=== PATIENT | male | born 1930 | race African-American/Black ===

== ENCOUNTER 2017-05-04 23:00 | Inpatient (IN) | payer MEDICARE, OTHER ==
[~2017-05-04] VITALS: Ht 152.4 cm; Wt 86.2 kg
[2017-05-04] MEDS ORDERED: LEVOFLOXACIN 750MG PREMIX 150 ML IV ONE (23:30)
[2017-05-04 23:47] LABS: BASOPHILS % 0.6 % (0.0-2.0); EOSINOPHILS % 4.1 % (0.0-5.0); HEMATOCRIT. 34.7 % (42.0-52.0); HEMOGLOBIN. 11.1 g/dL (14.0-18.0); LYMPHOCYTES % 16.8 % (20.0-50.0); MEAN CORPUSCULAR HEMOGLOBIN 27.6 pg (28.0-32.0); MEAN CORPUSCULAR VOLUME 86.3 fL (80.0-94.0); MEAN PLATELET VOLUME 9.1 fl (7.4-10.4); MONOCYTES % 9.2 % (2.0-8.0); NEUTROPHILS % 69.3 % (40.0-76.0); PLATELET 197 x1000/uL (130-400); RED BLOOD CELL COUNT 4.02 mill/uL (4.7-6.1); RED CELL DISTRIBUTION WIDTH 19.1 % (11.6-14.6)
[2017-05-04 23:53] LABS: INR 1.1; PROTHROMBIN TIME 11.7 sec (9.4-11.6)
[2017-05-05] VITALS (11 sets, daily range): BP systolic 149–172; BP diastolic 71–99
[2017-05-05 00:01] LABS: CARBON DIOXIDE 26 mEq/L (21-32); CHLORIDE 101 mEq/L (98-107); TROPONIN I 0.22 ng/mL (0.00-0.04)
[2017-05-05] MEDS ORDERED: ASPIRIN 81MG TABLET PO SCH (00:30)
[2017-05-05] MEDS ORDERED: NITROGLYCERIN 0.4MG TABLET SL SL ONE (03:30)
[2017-05-05] MEDS ORDERED: ACETAMINOPHEN 325MG TABLET PO PRN (10:15)
[2017-05-05] MEDS ORDERED: ONDANSETRON HCL 4MG/2ML VIAL IV PRN (10:15)
[2017-05-05] MEDS ORDERED: DOCUSATE SODIUM 100MG CAPSULE PO PRN (10:15)
[2017-05-05] MEDS ORDERED: MAGNESIUM/ALUMINUM HYDROXIDE/SIMETHICONE 30ML UDC PO PRN (10:15)
[2017-05-05] MEDS ORDERED: HYDROCODONE/ACETAMINOPHEN 5/325MG TABLET PO PRN (10:15)
[2017-05-05] MEDS ORDERED: IPRATROPIUM/ALBUTEROL 0.5-3(2.5)MG/3ML NEB INH PRN (10:15)
[2017-05-05 10:40] LABS: BG BASE EXCESS 0.1 mmol/L (-2.0-2.0); BG CARBOXYHEMOGLOBIN 0.7 % (0.5-1.5); BG DEOXYHEMOGLOBIN 7.9 % (0.0-5.0); BG FRACTION INSPIRED OXYGEN 32; BG METHEMOGLOBIN 0.1 % (0.0-1.5); BG OXYHEMOGLOBIN 91.3 % (94.0-97.0); BG PCO2 36.1 mmHg (35.0-45.0); BG PO2 63.5 mmHg (75.0-100.0); BG SAMPLE SITE RIGHT BRACHIAL; BG TOTAL HEMOGLOBIN 11.7 g/dL (12.0-18.0); BG VENT MODE NASAL CANNULA
[2017-05-05] MEDS: AZITHROMYCIN 500 MG TABLET PO SCH (12:35)
[2017-05-05 15:43] LABS: CREATINE KINASE MB FRACTION 2.6 ng/mL (0.5-3.6)
[2017-05-05 15:48] LABS: TROPONIN I 0.79 ng/mL (0.00-0.04)
[2017-05-05] MEDS: CEFTRIAXONE 1 G PREMIX 50 ML IV SCH (17:06)
[2017-05-05] MEDS ORDERED: DEXTROSE 50% WATER 50ML SYRINGE IV PRN (19:15)
[2017-05-05] MEDS: INSULIN LISPRO 100 UNITS/ML SUBCUT SCH (21:00)
[2017-05-05] MEDS: BLOOD SUGAR DIAGNOSTIC STRIP TEST SCH (21:00)
[2017-05-05] MEDS: HEPARIN 5000 UNITS/ML VIAL SUBCUT SCH (21:52)
[2017-05-06] VITALS (13 sets, daily range): BP systolic 93–171; BP diastolic 25–94
[2017-05-06 00:10] LABS: CREATINE KINASE MB FRACTION 2.4 ng/mL (0.5-3.6)
[2017-05-06] MEDS: CLONIDINE 0.1MG TABLET PO PRN ×2 (00:23→06:34)
[2017-05-06 00:51] LABS: TROPONIN I 0.7 ng/mL (0.00-0.04)
[2017-05-06] MEDS: BLOOD SUGAR DIAGNOSTIC STRIP TEST SCH ×4 (06:50→16:50)
[2017-05-06] MEDS: INSULIN LISPRO 100 UNITS/ML SUBCUT SCH ×4 (07:20→18:11)
[2017-05-06] MEDS ORDERED: ASPIRIN 81MG EC TABLET PO SCH (09:00)
[2017-05-06] MEDS: AZITHROMYCIN 500 MG TABLET PO SCH (09:23)
[2017-05-06] MEDS: CEFTRIAXONE 1 G PREMIX 50 ML IV SCH (09:23)
[2017-05-06] MEDS: HEPARIN 5000 UNITS/ML VIAL SUBCUT SCH (09:25)
[2017-05-06 09:50] LABS: HEMATOCRIT 34.5 % (42.0-52.0); HEMOGLOBIN 10.9 g/dL (14.0-18.0); MEAN CORPUSCULAR HEMOGLOBIN 27.5 pg (28.0-32.0); PLATELET 196 x1000/uL (130-400); RED BLOOD CELL COUNT 3.97 mill/uL (4.7-6.1); RED CELL DISTRIBUTION WIDTH 19.3 % (11.6-14.6)
[2017-05-06] MEDS ORDERED: LISINOPRIL 2.5MG TABLET PO SCH (11:45)
[2017-05-06] MEDS ORDERED: CARVEDILOL 3.125 MG TABLET PO SCH (21:00)
== END 2017-05-06 21:02 | disposition short-term general hospital (02) | DRG 291 ==
LOC: ER 23:00 → EDBEDREQTM 05-05 00:10 → EDBEDREQSVC 05-05 00:10 → EDBEDREQ 05-05 00:10 → 3WST 05-05 05:59 → EDBEDREQTM 05-05 06:01 → EDBEDREQ 05-05 06:01 → ENRESERV 05-05 06:08
PROVIDERS: ADMIT Internal Medicine; ATTEND Internal Medicine
PROC: 5A09357 Assistance with Respiratory Ventilation, Less than 24 Consecutive Hours, Continuous Positive Airway Pressure (ICD-10-PCS; principal; 2017-05-05)
DX: I13.2 Hypertensive heart and chronic kidney disease with heart failure and with stage 5 chronic kidney disease, or end stage renal disease (principal); J96.01 Acute respiratory failure with hypoxia; I50.23 Acute on chronic systolic (congestive) heart failure; N18.6 End stage renal disease; I42.9 Cardiomyopathy, unspecified; E11.22 Type 2 diabetes mellitus with diabetic chronic kidney disease; E11.51 Type 2 diabetes mellitus with diabetic peripheral angiopathy without gangrene; Z89.511 Acquired absence of right leg below knee; Z89.512 Acquired absence of left leg below knee; Z99.2 Dependence on renal dialysis
CPT/HCPCS: 36415; 36600; 71010; 80048; 80053; 80061; 82375; 82550; 82553; 82805; 82962; 83605; 83735; 83880; 84443; 84484; 85025; 85027; 85610; 87040; 93005; 93306; 93970; 94660; 96365; 96366; 99291; J0696; J1644; J1815; J1956; J7030; J7050

== ENCOUNTER 2017-05-11 12:11 | Inpatient (IN) | payer OTHER ==
[~2017-05-11] VITALS: Ht 167.6 cm; Wt 79.8 kg
[2017-05-11] MEDS ORDERED: SODIUM CHLORIDE 0.9% 1,000 ML IV ONE (13:44)
[2017-05-11 14:28] LABS: HEMATOCRIT. 35.8 % (42.0-52.0); HEMOGLOBIN. 11.4 g/dL (14.0-18.0); MEAN CORPUSCULAR HEMOGLOBIN 27.1 pg (28.0-32.0); MEAN CORPUSCULAR VOLUME 85.1 fL (80.0-94.0); MEAN PLATELET VOLUME 9.5 fl (7.4-10.4); PLATELET 253 x1000/uL (130-400); RED CELL DISTRIBUTION WIDTH 19.4 % (11.6-14.6)
[2017-05-11 14:35] LABS: INR 1.1; PARTIAL THROMBOPLASTIN TIME 28.1 sec (23.4-31.0); PROTHROMBIN TIME 11.7 sec (9.4-11.6)
[2017-05-11 14:47] LABS: CARBON DIOXIDE 24 mEq/L (21-32); CHLORIDE 96 mEq/L (98-107)
[2017-05-11] MEDS ORDERED: ASPIRIN 325MG EC TABLET PO ONE (15:15)
[2017-05-11 15:19] LABS: PLATELET ESTIMATE NORMAL
[2017-05-11] MEDS ORDERED: DOCUSATE SODIUM 100MG CAPSULE PO PRN (17:00)
[2017-05-11] MEDS ORDERED: MAGNESIUM/ALUMINUM HYDROXIDE/SIMETHICONE 30ML UDC PO PRN (17:00)
[2017-05-11] MEDS ORDERED: IPRATROPIUM/ALBUTEROL 0.5-3(2.5)MG/3ML NEB INH PRN (17:00)
[2017-05-11] MEDS ORDERED: CLONIDINE 0.1MG TABLET PO PRN (17:00)
[2017-05-11] MEDS ORDERED: ONDANSETRON HCL 4MG/2ML VIAL IV PRN (17:00)
[2017-05-11] MEDS ORDERED: ACETAMINOPHEN 325MG TABLET PO PRN (17:00)
[2017-05-11] MEDS ORDERED: HYDROCODONE/ACETAMINOPHEN 5/325MG TABLET PO PRN (17:00)
[2017-05-11 22:00] VITALS: BP 161/68
[2017-05-12] VITALS: BP 161/68
[2017-05-12 00:49] LABS: CREATINE KINASE MB FRACTION 2.3 ng/mL (0.5-3.6)
[2017-05-12 01:04] LABS: TROPONIN I 5.1 ng/mL (0.00-0.04)
[2017-05-12 04:00] VITALS: BP 131/68
[2017-05-12] MEDS ORDERED: CARV12.545 PO (04:01)
[2017-05-12] MEDS ORDERED: CALC667C PO (04:01)
[2017-05-12] MEDS ORDERED: NPH,100V SQ (04:01)
[2017-05-12] MEDS ORDERED: CLOP75TA33 PO (04:01)
[2017-05-12] MEDS ORDERED: LISI-186 PO (04:01)
[2017-05-12 06:15] LABS: HEMATOCRIT. 33.2 % (42.0-52.0); HEMOGLOBIN. 10.7 g/dL (14.0-18.0); MEAN CORPUSCULAR HEMOGLOBIN 27.2 pg (28.0-32.0); MEAN CORPUSCULAR VOLUME 84.7 fL (80.0-94.0); MEAN PLATELET VOLUME 9.6 fl (7.4-10.4); PLATELET 243 x1000/uL (130-400); RED BLOOD CELL COUNT 3.92 mill/uL (4.7-6.1)
[2017-05-12 06:58] LABS: CREATINE KINASE MB FRACTION 2.2 ng/mL (0.5-3.6)
[2017-05-12 07:59] LABS: TROPONIN I 4.6 ng/mL (0.00-0.04)
[2017-05-12 08:00] VITALS: BP 149/58
[2017-05-12] MEDS ORDERED: PNEUMOCOCCAL 23-VAL P-SAC VAC 0.5 ML IM ONE (10:00)
[2017-05-12 12:00] VITALS: BP 134/59
[2017-05-12] MEDS: ASPIRIN 81MG EC TABLET PO SCH (13:13)
[2017-05-12] MEDS: ENOXAPARIN 30MG/0.3ML SYR SUBCUT SCH (13:13)
[2017-05-12 16:00] VITALS: BP 112/46
[2017-05-12 17:03] LABS: PLATELET ESTIMATE NORMAL
[2017-05-12] MEDS ORDERED: DEXTROSE 50% WATER 50ML SYRINGE IV PRN (19:00)
[2017-05-12 20:00] VITALS: BP 157/61
[2017-05-12] MEDS: ATORVASTATIN CALCIUM 40MG TABLET PO SCH (21:46)
[2017-05-12] MEDS: AMLODIPINE 5MG TABLET PO SCH (21:47)
[2017-05-12] MEDS: INSULIN LISPRO 100 UNITS/ML SUBCUT SCH (21:54)
[2017-05-12] MEDS: BLOOD SUGAR DIAGNOSTIC STRIP TEST SCH (21:55)
[2017-05-13] VITALS: BP 156/64
[2017-05-13 07:31] LABS: HEMATOCRIT. 34.4 % (42.0-52.0); HEMOGLOBIN. 11.1 g/dL (14.0-18.0); MEAN CORPUSCULAR HEMOGLOBIN 27.3 pg (28.0-32.0); MEAN CORPUSCULAR VOLUME 84.5 fL (80.0-94.0); MEAN PLATELET VOLUME 8.9 fl (7.4-10.4); PLATELET 246 x1000/uL (130-400); RED BLOOD CELL COUNT 4.07 mill/uL (4.7-6.1); RED CELL DISTRIBUTION WIDTH 19.1 % (11.6-14.6)
[2017-05-13] MEDS: BLOOD SUGAR DIAGNOSTIC STRIP TEST SCH ×3 (07:40→21:29)
[2017-05-13 08:00] VITALS: BP 139/61
[2017-05-13] MEDS: INSULIN LISPRO 100 UNITS/ML SUBCUT SCH ×3 (08:10→21:33)
[2017-05-13] MEDS: ASPIRIN 81MG EC TABLET PO SCH (09:14)
[2017-05-13] MEDS: AMLODIPINE 5MG TABLET PO SCH ×2 (09:14→21:05)
[2017-05-13 12:00] VITALS: BP 138/61
[2017-05-13] MEDS: ENOXAPARIN 30MG/0.3ML SYR SUBCUT SCH (12:57)
[2017-05-13 13:19] LABS: PLATELET ESTIMATE NORMAL
[2017-05-13 15:13] VITALS: BP 137/60
[2017-05-13 16:00] VITALS: BP 156/66
[2017-05-13 20:00] VITALS: BP 160/45
[2017-05-13] MEDS: ATORVASTATIN CALCIUM 40MG TABLET PO SCH (21:04)
[2017-05-14 00:25] VITALS: BP 113/50
== END 2017-05-14 00:47 | disposition short-term general hospital (02) | DRG 280 ==
LOC: ER 12:37 → 7WST 15:42 → EDBEDREQ 15:44 → ENRESERV 20:48 → CANBEDREQ 21:03
PROVIDERS: ADMIT Internal Medicine; ATTEND Internal Medicine
DX: I21.4 Non-ST elevation (NSTEMI) myocardial infarction (principal); N18.6 End stage renal disease; I13.2 Hypertensive heart and chronic kidney disease with heart failure and with stage 5 chronic kidney disease, or end stage renal disease; E11.22 Type 2 diabetes mellitus with diabetic chronic kidney disease; E11.51 Type 2 diabetes mellitus with diabetic peripheral angiopathy without gangrene; E78.00 Pure hypercholesterolemia, unspecified; E78.5 Hyperlipidemia, unspecified; I50.9 Heart failure, unspecified; D64.9 Anemia, unspecified; Z89.511 Acquired absence of right leg below knee; Z89.512 Acquired absence of left leg below knee; Z79.899 Other long term (current) drug therapy; Z99.2 Dependence on renal dialysis
CPT/HCPCS: 36415; 71010; 80048; 80053; 80061; 82550; 82553; 82962; 83605; 83735; 83880; 84443; 84484; 85025; 85610; 85730; 87040; 93005; 93970; 99291; J1650; J1815; J7030